=== PATIENT | female | born 1990 | race Two or more races ===

== ENCOUNTER 2020-08-04 17:16 | Emergency (ER) | payer OTHER ==
[~2020-08-04] VITALS: Ht 157.5 cm; Wt 95.3 kg
--- NOTE | 2020-08-04 17:32 | Emergency Room Report ---
History of Present Illness General Chief Complaint: Complications Source: Patient Present Illness HPI 30-year-old female G2, , 7 months presents with generalized lower abdominal pressure x1 day, with some dysuria no aggravating or alleviating factors severity is moderate, constant no fevers no chills no nausea no vomiting patient's doctor is at [facility] presents for evaluation and treatment Allergies: Coded Allergies: No Known Allergies (Unverified , 08/04/20) COVID-19 Screening Contact w/high risk pt: No Experienced COVID-19 symptoms?: No COVID-19 Testing performed [employer]: Yes COVID-19 Screening: Negative COVID-19 COVID-19 Testing Source: months ago Patient History Past Medical History: see triage record Now: Yes - 7 months : 3 Para: 1 Reviewed Nursing Documentation: PMH: Agreed; PSxH: Agreed Nursing Documentation-PMH Past Medical History: No History, Except For Review of Systems All Other Systems: negative except mentioned in HPI Physical Exam Vital Signs Date Time Temp Pulse Resp B/P (MAP) Pulse Ox O2 Delivery O2 Flow Rate FiO2 08/04/20 17:25 91 19 141/78 (99) 100 Room Air Sp02 EP Interpretation: reviewed, normal General Appearance: well appearing, no apparent distress, alert Head: normocephalic, atraumatic Eyes: bilateral eye PERRL, bilateral eye EOMI ENT: uvula midline, moist mucus membranes Neck: supple, thyroid normal, supple/symm/no masses Respiratory: lungs clear, no respiratory distress, no retraction, no accessory muscle use Cardiovascular #1: normal peripheral pulses, regular rate, rhythm, no edema, no gallop, no murmur Gastrointestinal: non tender, soft, no guarding, no rebound, other - Gravid abdomen [id number] ultrasound Musculoskeletal: normal inspection Neurologic: alert, oriented x3 Psychiatric: mood/affect normal Skin: no rash, warm/dry Medical Decision Making Diagnostic Impression: Primary Impression: UTI (urinary tract infection) Qualified Codes: N30.00 - Acute cystitis without hematuria Additional Impression: Abdominal pain in Qualified Codes: O26.893 - Other specified related conditions, third trimester; R10.9 - Unspecified abdominal pain ER Course 30-year-old female presents with lower abdominal pain, differential diagnosis includes complication of , premature rupture membranes, threatened Ultrasound at bedside shows a heart rate of 147, membranes intact, patient did not have a gush of fluid, patient UA shows bacteriuria, will start patient on antibiotics Plan for transfer to [facility] for monitoring Patient accepted by Dr. Stern Laboratory Tests Test 08/04/20 17:30 White Blood Count 14.7 K/UL (4.8-10.8) H Red Blood Count 4.28 M/UL (4.20-5.40) Hemoglobin 12.4 G/DL (12.0-16.0) Hematocrit 37.2 % (37.0-47.0) Mean Corpuscular Volume 87 FL (80-99) Mean Corpuscular Hemoglobin 29.0 PG (27.0-31.0) Mean Corpuscular Hemoglobin Concent 33.3 G/DL (32.0-36.0) Red Cell Distribution Width 13.5 % (11.6-14.8) Platelet Count 280 K/UL (150-450) Mean Platelet Volume 7.6 FL (6.5-10.1) Neutrophils (%) (Auto) 78.4 % (45.0-75.0) H Lymphocytes (%) (Auto) 13.1 % (20.0-45.0) L Monocytes (%) (Auto) 6.5 % (1.0-10.0) Eosinophils (%) (Auto) 1.1 % (0.0-3.0) Basophils (%) (Auto) 0.9 % (0.0-2.0) Prothrombin Time 10.4 SEC (9.30-11.50) Prothrombin Time INR 0.9 (0.9-1.1) Activated Partial Thromboplast Time 28 SEC (23-33) Urine Color Pale yellow Urine Appearance Slightly cloudy Urine pH 6.5 (4.5-8.0) Urine Specific Rarden 1.020 (1.005-1.035) Urine Protein Negative (NEGATIVE) Urine Glucose (UA) Negative (NEGATIVE) Urine Ketones Negative (NEGATIVE) Urine Blood Negative (NEGATIVE) Urine Nitrite Negative (NEGATIVE) Urine Bilirubin Negative (NEGATIVE) Urine Urobilinogen Normal MG/DL (0.0-1.0) Urine Leukocyte Esterase 1+ (NEGATIVE) H Urine RBC 0-2 /HPF (0 - 2) Urine WBC 0-2 /HPF (0 - 2) Urine Squamous Epithelial Cells Moderate /LPF (NONE/OCC) H Urine Bacteria Few /HPF (NONE) Sodium Level 136 MMOL/L (136-145) Potassium Level 3.5 MMOL/L (3.5-5.1) Chloride Level 103 MMOL/L (98-107) Carbon Dioxide Level 24 MMOL/L (21-32) Anion Gap 9 mmol/L (5-15) Blood Urea Nitrogen 12 mg/dL (7-18) Creatinine 0.6 MG/DL (0.55-1.30) Estimated Glomerular Filtration Rate > 60 mL/min (>60) Glucose Level 119 MG/DL (74-106) H Calcium Level 9.1 MG/DL (8.5-10.1) Total Bilirubin 0.1 MG/DL (0.2-1.0) L Aspartate Amino Transferase (AST) 18 U/L (15-37) Alanine Aminotransferase (ALT) 20 U/L (12-78) Alkaline Phosphatase 83 U/L (46-116) Total Protein 7.2 G/DL (6.4-8.2) Albumin 2.9 G/DL (3.4-5.0) L Globulin 4.3 g/dL Albumin/Globulin Ratio 0.7 (1.0-2.7) L Lipase 153 U/L (73-393) Human Chorionic Gonadotropin, Quant Pending CT/MRI/US Diagnostic Results CT/MRI/US Diagnostic Results : Impression Procedure: US OB Gestation after 14wks EXAM: US , Limited CLINICAL HISTORY: ABD PAIN TECHNIQUE: Real-time limited ultrasound of the maternal uterus with image documentation. COMPARISON: No relevant prior studies available. FINDINGS: Fetus: Single living intrauterine with an estimated gestational age of 30 weeks and 1 day. Position: Cephalic presentation. Heart rate: heart rate 147 bpm. Placenta: Right lateral placenta. No abruption. Amniotic fluid: MUMTAZ 13.2 cm, within normal limits. Cervix: Cervix is closed and slightly short at 2.6 cm. IMPRESSION: 1. Single living intrauterine with an estimated gestational age of 30 weeks and 1 day. 2. Cervix is closed and slightly short at 2.6 cm. Attention on follow- up. Dictated By: Alex Farias M.D. Electronically Signed By:Alex Farias M.D. Signed Date/Time08/04/20 0177 CC: Jose M Steve MD Last Vital Signs Date Time Temp Pulse Resp B/P (MAP) Pulse Ox O2 Delivery O2 Flow Rate FiO2 08/04/20 17:25 91 19 141/78 (99) 100 Room Air Disposition: SHORT-TERM HOSP - [facility] Condition: Stable Jose M Steve MD Aug 04, 2020 17:32
--- NOTE | 2020-08-04 17:35 | NUR ---
per patient she is 7 month having cotractions since yesterday evening today leaking fluid from vagina cotractions are every [address] reyes labs drawn iv in place
--- NOTE | 2020-08-04 17:37 | NUR ---
ulrasound is been done at bedside
--- NOTE | 2020-08-04 17:39 | NUR ---
ED Nurse Note: US @ bedside
[2020-08-04 17:46] LABS: APPEARANCE,URINE SLIGHTLY CLOUDY; BILIRUBIN, URINE NEGATIVE (NEGATIVE); COLOR,URINE PALE YELLOW; GLUCOSE, URINE (UA) NEGATIVE (NEGATIVE); KETONES,URINE NEGATIVE (NEGATIVE); LEUKOCYTE ESTERASE ,URINE 1+ (NEGATIVE); NITRITE,URINE NEGATIVE (NEGATIVE); PH,URINE 6.5 (4.5-8.0); PROTEIN,URINE NEGATIVE (NEGATIVE); UROBILINOGEN,URINE NORMAL MG/DL (0.0-1.0)
[2020-08-04 17:47] LABS: BASOPHILS % (AUTO) 0.9 % (0.0-2.0); EOSINOPHILS % (AUTO) 1.1 % (0.0-3.0); HEMATOCRIT 37.2 % (37.0-47.0); HEMOGLOBIN 12.4 G/DL (12.0-16.0); LYMPHOCYTES % (AUTO) 13.1 % (20.0-45.0); MEAN CORPUSCULAR VOLUME 87 FL (80-99); MONOCYTES % (AUTO) 6.5 % (1.0-10.0); NEUTROPHILS % (AUTO) 78.4 % (45.0-75.0); PLATELET COUNT 280 K/UL (150-450); RED BLOOD COUNT 4.28 M/UL (4.20-5.40); RED CELL DISTRIBUTION WIDTH 13.5 % (11.6-14.8); WHITE BLOOD COUNT 14.7 K/UL (4.8-10.8)
[2020-08-04 17:54] LABS: INR 0.9 (0.9-1.1)
[2020-08-04 18:11] LABS: ANION GAP 9 mmol/L (5-15); BLOOD UREA NITROGEN 12 mg/dL (7-18); CALCIUM 9.1 MG/DL (8.5-10.1); CARBON DIOXIDE 24 MMOL/L (21-32); CHLORIDE 103 MMOL/L (98-107); CREATININE 0.6 MG/DL (0.55-1.30); POTASSIUM 3.5 MMOL/L (3.5-5.1); SODIUM 136 MMOL/L (136-145)
[2020-08-04] MEDS ORDERED: cefTRIAXone 1 GM in NS 55 ML IVPB ONE (18:15)
[2020-08-04 18:16] LABS: ALANINE AMINOTRANSFERASE 20 U/L (12-78); ALBUMIN 2.9 G/DL (3.4-5.0); ALBUMIN/GLOBULIN RATIO 0.7 (1.0-2.7); ALKALINE PHOSPHATASE 83 U/L (46-116); ASPARTATE AMINO TRANSFERASE 18 U/L (15-37); BILIRUBIN,TOTAL 0.1 MG/DL (0.2-1.0)
--- NOTE | 2020-08-04 18:24 | Diagnostic Imaging Report ---
EXAM: US , Limited CLINICAL HISTORY: ABD PAIN TECHNIQUE: Real-time limited ultrasound of the maternal uterus with image documentation. COMPARISON: No relevant prior studies available. FINDINGS: Fetus: Single living intrauterine with an estimated gestational age of 30 weeks and 1 day. Position: Cephalic presentation. Heart rate: heart rate 147 bpm. Placenta: Right lateral placenta. No abruption. Amniotic fluid: MUMTAZ 13.2 cm, within normal limits. Cervix: Cervix is closed and slightly short at 2.6 cm. IMPRESSION: 1. Single living intrauterine with an estimated gestational age of 30 weeks and 1 day. 2. Cervix is closed and slightly short at 2.6 cm. Attention on follow- up.
--- NOTE | 2020-08-04 19:10 | NUR ---
HAND-OFF: Report given to ALEJO Nair. Pt in stable condition; plan of care endorsed.
--- NOTE | 2020-08-04 19:20 | NUR ---
ED Nurse Note: Recieved report from am nurse to resume care, pt in bed awake, alert and oriented x 4, pt has patent IV site in right AC, antibiotics completed, line flushed, pt tolerated well, no s/s of adverse reaction noted, pt is 7mos and here for abd pain, no pain a this time, no vaginal bleeding or discharge, pt states she feels better, pt also states she feels the baby movement as usual, v/s stable, will resume care as ordered, pt to be transferred for OB care, will continue to monitor while waiting for disposition information.
[2020-08-04 19:45] VITALS: BP 136/74
[2020-08-04 21:00] VITALS: BP 139/68
--- NOTE | 2020-08-04 21:00 | NUR ---
ED Nurse Note: Pt continues to rest quietly in bed, awake and alert, no acute changes or increased distress noted, pt continues to deny pain, no bleeding or discharge noted either, pt continues to feel the baby movement as normal, v/s stable, no sob or labored breathing, will continue to closely monitor while waiting for pt disposition info.
[2020-08-04 22:00] VITALS: BP 140/77
--- NOTE | 2020-08-04 22:20 | NUR ---
ED Nurse Note: Pt being transferred to [facility] for Pre-Term labor, report called to ChenRN at [phone], pt is aware and transfer forms signed, [facility] is present for pt transport rig#[id number], report and all transfer forms given to newspaper delivery driver Jt, pt is awake and alert, continues to deny pain, saline lock intact, no vag bleeding or discharge or acute distress noted during pt transport.
[2020-08-04 22:25] VITALS: BP 140/77
== END 2020-08-04 22:25 | disposition short-term general hospital (02) ==
LOC: EMR 17:26
DX: O23.43 Unspecified infection of urinary tract in pregnancy, third trimester (principal); O26.893 Other specified pregnancy related conditions, third trimester; R10.9 Unspecified abdominal pain; Z3A.30 30 weeks gestation of pregnancy
CPT/HCPCS: 36415; 76805; 76817; 80053; 81003; 83690; 84702; 85025; 85610; 85730; 96365; J0696; U0002; Z7502; 99284